=== PATIENT | female | born 1940 | race African-American/Black ===

== ENCOUNTER 2021-02-03 21:26 | Inpatient (IN) | payer MEDICARE, BC ==
[~2021-02-03] VITALS: Ht 154.9 cm; Wt 49.0 kg
[2021-02-03] MEDS ORDERED: ACETAMINOPHEN 650MG SUPP PR STA (22:43)
[2021-02-03] MEDS ORDERED: LACTATED RINGERS 1,000 ML IV SCH (22:45)
[2021-02-03] MEDS ORDERED: VANCOMYCIN 1 G PREMIX 200 ML IV ONE (22:45)
[2021-02-03] MEDS ORDERED: SODIUM CHLORIDE 0.9% 1000ML BAG (SEPSIS BOLUS) IV ONE (22:45)
[2021-02-03] MEDS ORDERED: MEROPENEM 1,000 MG in SODIUM CHLORIDE 0.9% 100 ML IV ONE (22:45)
[2021-02-04] VITALS (40 sets, daily range): BP systolic 113–158; BP diastolic 63–99
[2021-02-04 01:53] LABS: CLARITY URINE TURBID (CLEAR); COLOR URINE YELLOW (YELLOW); KETONES URINE NEGATIVE (NEGATIVE); LEUKOCYTE ESTERASE URINE 1+ (NEGATIVE); NITRITE URINE NEGATIVE (NEGATIVE); OCCULT BLOOD URINE 3+ (NEGATIVE); PH URINE 5.5 (4.5-8.0); PROTEIN URINE 1+ (NEGATIVE); SPECIFIC GRAVITY URINE 1.023 (1.005-1.030)
[2021-02-04 02:00] LABS: HEMATOCRIT. 31.4 % (36.0-48.0); HEMOGLOBIN. 10.2 g/dL (12.0-16.0); MEAN CORPUSCULAR VOLUME 92.6 fL (81.0-99.0); MEAN PLATELET VOLUME 8.1 fl (7.4-10.4); PLATELET 361 x1000/uL (130-400); RED BLOOD CELL COUNT 3.39 mill/uL (4.2-5.4); RED CELL DISTRIBUTION WIDTH 15.6 % (11.6-14.6)
[2021-02-04] MEDS ORDERED: MEROPENEM 1,000 MG in SODIUM CHLORIDE 0.9% 100 ML IV SCH ×2 (02:00→03:45)
[2021-02-04 02:04] LABS: CHLORIDE 106 mEq/L (98-107)
[2021-02-04 02:08] LABS: INR 1.4; PROTHROMBIN TIME 14.6 sec (9.6-11.0)
[2021-02-04 02:58] LABS: PLATELET ESTIMATE NORMAL
[2021-02-04] MEDS ORDERED: ENOXAPARIN 40MG/0.4ML SYR SUBCUT SCH (03:45)
[2021-02-04] MEDS ORDERED: ONDANSETRON HCL 4MG/2ML INJ IV PRN (03:45)
[2021-02-04] MEDS ORDERED: DIPHENHYDRAMINE 50MG/ML VIAL IV PRN (03:45)
[2021-02-04] MEDS ORDERED: IPRATROPIUM/ALBUTEROL 0.5-3(2.5)MG/3ML NEB HHN PRN (03:45)
[2021-02-04] MEDS ORDERED: ACETAMINOPHEN 650MG/20.3ML UDC GT PRN ×2 (04:15)
[2021-02-04] MEDS ORDERED: SODIUM CHLORIDE 0.9% 1,000 ML IV SCH (07:00)
[2021-02-04] MEDS ORDERED: NOREPINEPHRINE 8MG/250ML PMX 250 ML IV PRN ×2 (08:00→08:15)
[2021-02-04] MEDS ORDERED: FAMOTIDINE 20MG/2ML VIAL IV SCH (09:00)
[2021-02-04] MEDS: FAMOTIDINE 20MG/2ML VIAL IV SCH (10:23)
[2021-02-04] MEDS: ENOXAPARIN 30MG/0.3ML SYR SUBCUT SCH (10:23)
[2021-02-04] MEDS ORDERED: MEROPENEM 1000MG in NORMAL SALINE 100ML IV SCH (11:00)
[2021-02-04] MEDS ORDERED: LIDOCAINE HCL 1% 20ML VIAL (Pyxis) INJ ONE (11:18)
[2021-02-04] MEDS: DEXTROSE 50% WATER 50ML SYRINGE IV PRN (12:18)
[2021-02-04] MEDS: DEXT 5%/0.9% NACL 1,000 ML IV SCH (12:20)
[2021-02-04] MEDS: MEROPENEM 1000MG in NORMAL SALINE 100ML IV SCH ×2 (13:04→21:04)
[2021-02-04] MEDS: BLOOD SUGAR DIAGNOSTIC STRIP TEST SCH ×2 (16:24→20:00)
[2021-02-05] VITALS (10 sets, daily range): BP systolic 91–149; BP diastolic 51–79
[2021-02-05] MEDS: BLOOD SUGAR DIAGNOSTIC STRIP TEST SCH ×6 (00:18→19:55)
[2021-02-05] MEDS: DEXT 5%/0.9% NACL 1,000 ML IV SCH ×3 (00:18→19:55)
[2021-02-05 06:17] LABS: BASOPHILS % 0.2 % (0.0-2.0); EOSINOPHILS % 0.4 % (0.0-5.0); HEMATOCRIT. 34.2 % (36.0-48.0); HEMOGLOBIN. 10.7 g/dL (12.0-16.0); LYMPHOCYTES % 11.2 % (20.0-50.0); MEAN CORPUSCULAR HEMOGLOBIN 29.8 pg (28.0-32.0); MEAN CORPUSCULAR VOLUME 95.3 fL (81.0-99.0); MEAN PLATELET VOLUME 8.6 fl (7.4-10.4); MONOCYTES % 4.1 % (2.0-8.0); NEUTROPHILS % 84.1 % (40.0-76.0); PLATELET 343 x1000/uL (130-400); RED BLOOD CELL COUNT 3.59 mill/uL (4.2-5.4)
[2021-02-05 06:30] LABS: CHLORIDE 113 mEq/L (98-107)
[2021-02-05] MEDS: FAMOTIDINE 20MG/2ML VIAL IV SCH (08:32)
[2021-02-05] MEDS: ENOXAPARIN 30MG/0.3ML SYR SUBCUT SCH (08:33)
[2021-02-05] MEDS: MEROPENEM 1000MG in NORMAL SALINE 100ML IV SCH ×2 (08:46→20:19)
[2021-02-05] MEDS: ZINC SULFATE 220 MG ( 50 ) CAPSULE PO SCH (15:17)
[2021-02-05] MEDS: ASCORBIC ACID 500 MG TABLET PO SCH (15:17)
[2021-02-05] MEDS: VANCOMYCIN 750 MG PREMIX 150 ML IV SCH (16:36)
[2021-02-06] VITALS (12 sets, daily range): BP systolic 97–130; BP diastolic 46–64
[2021-02-06] MEDS: BLOOD SUGAR DIAGNOSTIC STRIP TEST SCH ×6 (04:12→18:07)
[2021-02-06] MEDS: DEXT 5%/0.9% NACL 1,000 ML IV SCH ×2 (04:44→15:36)
[2021-02-06] MEDS: ZINC SULFATE 220 MG ( 50 ) CAPSULE PO SCH (09:48)
[2021-02-06] MEDS: ASCORBIC ACID 500 MG TABLET PO SCH (09:48)
[2021-02-06] MEDS: MEROPENEM 1000MG in NORMAL SALINE 100ML IV SCH (09:48)
[2021-02-06] MEDS: FAMOTIDINE 20MG/2ML VIAL IV SCH (09:48)
[2021-02-06] MEDS: VANCOMYCIN 750 MG PREMIX 150 ML IV SCH (09:49)
[2021-02-06] MEDS: ENOXAPARIN 30MG/0.3ML SYR SUBCUT SCH (09:49)
[2021-02-06] MEDS: MEROPENEM-0.9% SODIUM CHLORIDE 50 ML IV SCH (20:39)
[2021-02-07] VITALS (12 sets, daily range): BP systolic 105–141; BP diastolic 58–78
[2021-02-07 03:24] LABS: BASOPHILS % 0.5 % (0.0-2.0); EOSINOPHILS % 2.8 % (0.0-5.0); HEMATOCRIT. 26.8 % (36.0-48.0); HEMOGLOBIN. 8.8 g/dL (12.0-16.0); LYMPHOCYTES % 16.6 % (20.0-50.0); MEAN CORPUSCULAR HEMOGLOBIN 30.4 pg (28.0-32.0); MEAN CORPUSCULAR VOLUME 92.8 fL (81.0-99.0); NEUTROPHILS % 73.1 % (40.0-76.0); PLATELET 349 x1000/uL (130-400); RED BLOOD CELL COUNT 2.89 mill/uL (4.2-5.4); RED CELL DISTRIBUTION WIDTH 15.8 % (11.6-14.6)
[2021-02-07 03:30] LABS: CHLORIDE 117 mEq/L (98-107)
[2021-02-07] MEDS: VANCOMYCIN 750 MG PREMIX 150 ML IV SCH (04:13)
[2021-02-07] MEDS: BLOOD SUGAR DIAGNOSTIC STRIP TEST SCH ×4 (05:49→18:21)
[2021-02-07] MEDS: ASCORBIC ACID 500 MG TABLET PO SCH (09:05)
[2021-02-07] MEDS: ZINC SULFATE 220 MG ( 50 ) CAPSULE PO SCH (09:05)
[2021-02-07] MEDS: FAMOTIDINE 20MG/2ML VIAL IV SCH (09:05)
[2021-02-07] MEDS: MEROPENEM-0.9% SODIUM CHLORIDE 50 ML IV SCH ×2 (09:05→21:49)
[2021-02-07] MEDS: ENOXAPARIN 30MG/0.3ML SYR SUBCUT SCH (09:06)
[2021-02-07] MEDS ORDERED: LACTULOSE 20G/30ML UDC PO NR (14:30)
[2021-02-07] MEDS: VANCOMYCIN 1 G PREMIX 200 ML IV SCH (21:49)
[2021-02-07] MEDS ORDERED: DEXT 5% WATER + KCL 20MEQ/L 1,000 ML IV SCH (22:45)
[2021-02-08] VITALS (12 sets, daily range): BP systolic 99–162; BP diastolic 63–94
[2021-02-08] MEDS: BLOOD SUGAR DIAGNOSTIC STRIP TEST SCH ×4 (00:07→18:00)
[2021-02-08] MEDS: DEXT 5% WATER + KCL 20MEQ/L 1,000 ML IV SCH ×2 (01:52→13:20)
[2021-02-08 07:02] LABS: BASOPHILS % 0.9 % (0.0-2.0); EOSINOPHILS % 3.6 % (0.0-5.0); HEMATOCRIT. 30.2 % (36.0-48.0); HEMOGLOBIN. 9.8 g/dL (12.0-16.0); LYMPHOCYTES % 19.5 % (20.0-50.0); MEAN CORPUSCULAR VOLUME 92.1 fL (81.0-99.0); MEAN PLATELET VOLUME 9.4 fl (7.4-10.4); MONOCYTES % 5.5 % (2.0-8.0); NEUTROPHILS % 70.5 % (40.0-76.0); PLATELET 342 x1000/uL (130-400); RED BLOOD CELL COUNT 3.28 mill/uL (4.2-5.4); RED CELL DISTRIBUTION WIDTH 15.7 % (11.6-14.6)
[2021-02-08 07:09] LABS: CHLORIDE 111 mEq/L (98-107)
[2021-02-08 07:27] LABS: INR 1.2; PROTHROMBIN TIME 12.7 sec (9.6-11.0)
[2021-02-08] MEDS: ZINC SULFATE 220 MG ( 50 ) CAPSULE PO SCH (08:21)
[2021-02-08] MEDS: ASCORBIC ACID 500 MG TABLET PO SCH (08:22)
[2021-02-08] MEDS: MEROPENEM-0.9% SODIUM CHLORIDE 50 ML IV SCH ×2 (09:42→22:02)
[2021-02-08] MEDS: FAMOTIDINE 20MG/2ML VIAL IV SCH (09:42)
[2021-02-08] MEDS: DEXTROSE 50% WATER 50ML SYRINGE IV PRN ×2 (11:58→17:07)
[2021-02-08] MEDS ORDERED: FENTANYL CITRATE/PF 50MCG/ML 2ML VIAL ONE (14:08)
[2021-02-08] MEDS ORDERED: MIDAZOLAM HCL 5 MG/5 ML VIAL ONE (14:08)
[2021-02-08] MEDS: VANCOMYCIN 1 G PREMIX 200 ML IV SCH (15:41)
[2021-02-09 01:37] VITALS: BP 112/77
[2021-02-09 03:50] VITALS: BP_SYST 120; BP_SYST 129; BP_DIAS 69; BP_DIAS 72
[2021-02-09 04:00] VITALS: BP 120/72
[2021-02-09 05:30] VITALS: BP 129/69
[2021-02-09] MEDS: BLOOD SUGAR DIAGNOSTIC STRIP TEST SCH ×2 (06:01)
[2021-02-09 08:26] VITALS: BP 133/72
== END 2021-02-09 09:00 | disposition home health service (06) | DRG 871 ==
LOC: EDSEX 21:26 → EDBD 21:26 → ER 21:26 → MICUSO 02-04 00:19 → EDBEDREQSVC 02-04 08:06 → ENRESERV 02-04 08:42 → 3WST 02-04 23:17
PROVIDERS: ADMIT Internal Medicine; ATTEND Internal Medicine
PROC: 02HV33Z Insertion of Infusion Device into Superior Vena Cava, Percutaneous Approach (ICD-10-PCS; 2021-02-04)
PROC: B548ZZA Ultrasonography of Superior Vena Cava, Guidance (ICD-10-PCS; 2021-02-04)
PROC: 0D20XUZ Change Feeding Device in Upper Intestinal Tract, External Approach (ICD-10-PCS; principal; 2021-02-08)
DX: A41.9 Sepsis, unspecified organism (principal); L89.123 Pressure ulcer of left upper back, stage 3; L89.154 Pressure ulcer of sacral region, stage 4; L89.214 Pressure ulcer of right hip, stage 4; L89.894 Pressure ulcer of other site, stage 4; E43 Unspecified severe protein-calorie malnutrition; G93.41 Metabolic encephalopathy; N39.0 Urinary tract infection, site not specified; K94.23 Gastrostomy malfunction; E87.0 Hyperosmolality and hypernatremia; D64.9 Anemia, unspecified; E11.9 Type 2 diabetes mellitus without complications; F02.80 Dementia in other diseases classified elsewhere, unspecified severity, without behavioral disturbance, psychotic disturbance, mood disturbance, and anxiety; G20 Parkinson's disease; I50.9 Heart failure, unspecified; I11.0 Hypertensive heart disease with heart failure; M19.90 Unspecified osteoarthritis, unspecified site; Z20.822 Contact with and (suspected) exposure to COVID-19; R13.19 Other dysphagia; Y83.8 Other surgical procedures as the cause of abnormal reaction of the patient, or of later complication, without mention of misadventure at the time of the procedure; M48.061 Spinal stenosis, lumbar region without neurogenic claudication; Z74.01 Bed confinement status; Z86.73 Personal history of transient ischemic attack (TIA), and cerebral infarction without residual deficits; Z22.322 Carrier or suspected carrier of Methicillin resistant Staphylococcus aureus; Z68.20 Body mass index [BMI] 20.0-20.9, adult; Z88.0 Allergy status to penicillin; Z88.5 Allergy status to narcotic agent; Y82.8 Other medical devices associated with adverse incidents
CPT/HCPCS: 36415; 71045; 76937; 80048; 80053; 80202; 81003; 82040; 82962; 83036; 83605; 83880; 84134; 84145; 84484; 85025; 87426; 93005; 94640; 99285; C1725; J1650; J2185; J2250; J3010; J3370; J3490; J7030; J7042; J7050; J7060; U0003; U0005; A4315